=== PATIENT | female | born 1995 | race Caucasian/White ===

== ENCOUNTER 2017-01-27 20:42 | Emergency (ER) | payer MEDICAID, OTHER ==
[~2017-01-27] VITALS: Ht 160 cm; Wt 72.7 kg
[2017-01-27 20:46] VITALS: BP 145/88; TEMP 99.3
[2017-01-27] MEDS ORDERED: ADDERALL XR20 MG PO (20:49)
[2017-01-27] MEDS ORDERED: ELIMITE TOP (21:07)
[2017-01-27 22:01] LABS: PH 5 (5-8); URINE APPEARANCE Hazy; URINE BACTERIA Rare /hpf; URINE BILIRUBIN Negative (NEGATIVE); URINE BLOOD 1+ (NEGATIVE); URINE COLOR Yellow; URINE GLUCOSE Negative (NEGATIVE); URINE KETONE 2+ (NEGATIVE); URINE RBC 0-2 /hpf; URINE UROBILINOGEN Negative (NEGATIVE); URINE WBC 0-2 /hpf
[2017-01-27 22:04] LABS: BASO # 0.1 (0.0-0.2); BASO % 0.6 % (0.0-2.0); EOS # 0.1 (0.0-0.7); EOS % 1.7 % (0-4.0); GRAN # 5.3 (1.4-6.5); GRAN % 63.8 % (42.2-75.2); HEMOGLOBIN 13.4 g/dl (12.0-15.0); LYMPH # 2.1 (1.2-3.4); LYMPH % 25.1 % (20.0-51.0); MEAN CELL VOLUME 78 fl (80.0-95.0); MEAN CORPUSCULAR HEMOGLOBIN 26 pg (26.0-32.0); MEAN CORPUSCULAR HGB CONC 34 g/dl (33.0-37.0); MEAN PLATELET VOLUME 10.1 fl (7.4-10.4); MONO # 0.7 (0.1-0.6); MONO % 8.6 % (1.7-9.3); PLATELET COUNT 285 K/mm3 (130-400); RED BLOOD COUNT 5.16 M/mm3 (4.10-5.30); REDCELL DISTRIBUTION WIDTH-CV 14.9 % (11.5-14.5); WHITE BLOOD COUNT 8.3 K/mm3 (4.8-10.8)
[2017-01-27 22:18] LABS: ALANINE AMINOTRANSFERASE 27 U/L (9-52); ALBUMIN 5.4 gm/dL (3.5-5.0); ALKALINE PHOSPHATASE 69 U/L (50-136); ANION GAP 17 mmol/L (7-16); BLOOD UREA NITROGEN 18 mg/dL (7-17); C-REACTIVE PROTEIN < 0.5 mg/dL (0.0-0.9); CALCIUM 10.1 mg/dL (8.4-10.2); CARBON DIOXIDE 18 mmol/L (22-30); CHLORIDE 105 mmol/L (98-107); GLUCOSE 82 mg/dL (74-106); POTASSIUM 3.5 mmol/L (3.4-5.0); SODIUM 141 mmol/L (137-145)
[2017-01-27 22:23] LABS: ERYTHROCYTE SEDIMENTATION RATE 12 mm/hr (0-20)
[2017-01-27 23:32] VITALS: PULSE 91
== END 2017-01-27 23:33 | disposition home or self-care (01) ==
LOC: COL.ER 20:42
PROVIDERS: Emergency Medicine
DX: E86.0 Dehydration (principal)
CPT/HCPCS: J7030

== ENCOUNTER → 2017-05-05 | Outpatient (CLI) | payer OTHER ==
[~2017-05-05] MED LIST: ADDERALL XR20 MG PO; ELIMITE TOP
== END ==
LOC: COL.RAD 04-30 11:00
DX: S32.010A Wedge compression fracture of first lumbar vertebra, initial encounter for closed fracture (principal); S32.020A Wedge compression fracture of second lumbar vertebra, initial encounter for closed fracture

== ENCOUNTER 2019-03-27 06:52 | Inpatient (IN) | payer BC, MEDICAID ==
[2019-03-27] VITALS (51 sets, daily range): BP systolic 90–174; BP diastolic 53–104; PULSE 57–98; TEMP 97.4–99.3
[~2019-03-27] VITALS: Ht 160 cm; Wt 92.7 kg
--- NOTE | 2019-03-27 07:20 | NUR ---
Patient ambulatory to LR6 with sister, changed into gown, and FHR/TOCO monitors placed and explained per Jules CHIN.
--- NOTE | 2019-03-27 08:05 | NUR ---
Plan of care discussed. IV started in left hand and blood obtained and to lab, LR infusing. 0805: Dr. Rico at bedside and assessing patient/FHR strip. SVE per Physician / and AROM at this time with clear fluid noted.
--- NOTE | 2019-03-27 08:07 | NUR ---
Pitocin started at 2Mu per Dr. Rodrigues orders. 1010: Patient back from bathroom and sits on birthing ball, difficulty tracing FHR and monitor adjusted. 1030: at nurses station and viewing FHR strip. 1115: Dr. Rico at bedside assessing patient and FHR strip. SVE per physician 1-2/80/-2. 1135: Patient more uncomfortable with contractions and sitting in rocking chair. FHR difficult to trace and monitor adjusted. 1150: Patient reqesting epidural and Debo Spencer ENERGY ADMINISTRATOR called and notified. 1210: Patient sitting on edge of bed for placement of epidural and Eric ENERGY ADMINISTRATOR at bedside for procedure. Difficulty tracing FHR due to maternal position at this time. 1216: Single shot given and patient tolerates well. 1223: Patient repositioned and wedged left. 1227: FHR baseline 125bpm and tracing subtle late decelerations. 1235: Villanueva catheter placed and patient tolerates well. SVE-1-2/90/-2.
[2019-03-27] MEDS ORDERED: PRENATAL MVI (08:20)
[2019-03-27 09:21] LABS: BASO % 0.4 % (0.0-2.0); EOS # 0.6 (0.0-0.7); EOS % 5.6 % (0-4.0); GRAN # 6.8 (1.4-6.5); GRAN % 66.1 % (42.2-75.2); HEMOGLOBIN 13.2 g/dl (12.5-16.0); LYMPH % 19.7 % (20.0-51.0); MEAN CELL VOLUME 82 fl (80.0-100.0); MEAN CORPUSCULAR HEMOGLOBIN 27 pg (27.0-31.0); MEAN CORPUSCULAR HGB CONC 33 g/dl (33.0-37.0); MONO # 0.8 (0.1-0.6); MONO % 7.5 % (1.7-9.3); PLATELET COUNT 268 K/mm3 (130-400); RED BLOOD COUNT 4.89 M/mm3 (4.10-5.30); REDCELL DISTRIBUTION WIDTH-CV 14.8 % (11.5-14.5)
[2019-03-27] MEDS ORDERED: MOTRIN 800800 MG/TAB PO (11:56)
[2019-03-27] MEDS ORDERED: PERCOCET 325 MG1 TA2 PO (11:56)
--- NOTE | 2019-03-27 12:40 | NUR ---
FHR tracing late deceleration and patient turned right. 1250: FHR tracing recurrent late declerations. 1305: FHR baseline 125-130bmm and decreasing to 100-120bpm for approx 3 minutes. Patient wedged left. Recurrent late decerlations noted. Patient wedged right. 1320: FHR decreasing to 90bpm for 60 seconds and returns to basline. 1340: Dr. Rico called and updated. 1400: Subtle late decelerations tracing. Patient repositioned. 1430: FHR continues to trace subtle late decelerations. SVE-/-2. Patient repositioned. FHR returning to baseline. 1455: Subtle recurrrent late decelerations noted. 1515: Dr. Rico called and notified and states she is on her way to assess. 1535: Dr. Rico at bedside and assessing patient and FHR strip. SVE per physician /-2 and scalp stimuation/ bloody show noted. Orders to keep pitocin at 22mU. 1540: FHR decreasing to 90bpm for 50 seconds and gradually increases. 1542: FHR decreases to 90-100bpm for approx 2 minutes, patient sits up and then wedged left.
--- NOTE | 2019-03-27 16:43 | NUR ---
FHR 90-100bpm, patient sat up and wedged left and FHR increasing to 130-150bpm. FHR continues to trace recurrent late decelerations. 1610: FHR baseline 135-140bpm and recurrent late decelerations decreasing to 90-115bpm after each contractions with return to baseline. Patient being repositioned/wedged right and Dr. Rico aware of situtation. 1622: Patient wedged left. 1630: SVE-5-6/90-2 with bloody show and FHR tracing recurrent late decelerations.
--- NOTE | 2019-03-27 16:45 | NUR ---
FHR continues to trace recurrent late decelerations and patient begins repositioned. 1656: FHR baseline 135-140bpm and decreases to 90-100bpm for approx. 8 minutes. During this time patient sat up. 1700: Pitocin turned off, patient wedged right. 1703: Oxygen on via mask at 10ml/hr and patient wedged left. LR bolus started. 1705: SVE 6-7/90/-1 and FHR increasing to 155bpm. Recurrent late decelerations noted. 170: Dr. Rico called and notified and states she has beein keeping an eye on the FHR strip.
--- NOTE | 2019-03-27 18:20 | NUR ---
Report received from GIUSEPPE Parra. SVE 8-/-1. Plan of care explained to pt and questions answered. 1832: updated on pts status. See physican notification. Pitocin turned up to 12mus/hr per s orders. 1899: Pt repositioned to LL and peanut ball placed. FHR deceleration noted after repositioning. FHR down to 95-100bpm lasting 190 seconds with spontaneous return to baseline. 1907: at bedside reviewing FHR strip. 1909: SVE Complete per . Instructions on pushing with contractions given to pt who verbalizes understanding. Pt begins pushing with . RN remains at bedside. 1916: FHR deceleration noted down to 90bpms at lowest point with spontaneous returns to baseline lasting remaining of pushing. at bedside reviewing FHR strip. Scalp stimulation performed per provider. LR bolus infusing and oxygen administered via oxymask at 10Ls. Instructions on continuing to push with contractions given. 1930: Spontaneous delivery of infants head, loose NC X1 reduced by following spontaneous vaginal delivery of viable male by . to mothers chest where dried and stimulated by nursery RN. Pitocin stopped per protocol. Cord clamped X2 and cut by mother's sister. Care of infant assumed by GIUSEPPE Reardon. 1932: Spontaneous delivery of intact placenta by . Pitocin resummed at 333mus/her per protocol. Second degree laceration repaired by . Fundal message completed by this RN with clots noted, fundus firm, no free flow noted. Pericare provided, pads changed and ice pack applied. Pt repositioned in bed and plan of care and safety precautions explained to pt who verblaizes understanding. Call light within reach.
[2019-03-27 19:02] LABS: TRICYCLIC ANTIDEPRESS URINE NEGATIVE
[2019-03-28 00:15] VITALS: BP 129/71; PULSE 83; TEMP 99
[2019-03-28 04:30] VITALS: BP 108/85; PULSE 82; TEMP 98.6
[2019-03-28 08:05] VITALS: BP 125/74; PULSE 74; TEMP 97.8
--- NOTE | 2019-03-28 09:42 | NUR ---
Initial visit attempt; Consult in Progress, Cartographic Engineer left card of congratulations for the of their daughter and information regarding the availability of spiritual care at [facility].
--- NOTE | 2019-03-28 14:21 | NUR ---
CHISEL GRINDER josé miguel and COBY responded to a social media coordinator referral for the patient. The patient reports she lives with her father and siblings and has support. The patient states she has the supplies that she needs such as car seat, diapers and wipes. The patient reports she does not see a therapist for counseling; COBY addressed depression and anxiety. The patient states things are better since she is back home and has God back in her life. The patient states the kayla father is not involved. The patient states she was denied for [facility] services. COBY encouraged patient to contact [facility] again. Danny from financial counseling reports he has met with the patient to discuss the baby's insurance needs. The above information was collaborated with the patient's nurse.
[2019-03-28 16:15] VITALS: BP 127/61; PULSE 72; TEMP 98.6
[2019-03-28 21:30] VITALS: BP 129/82; PULSE 97; TEMP 98.1
[2019-03-29 07:00] VITALS: BP 118/75; PULSE 80; TEMP 98.6
--- NOTE | 2019-03-29 12:00 | NUR ---
1200-REVIEWED FOLLOW UP AT AT 6 WEEKS WITH PATIENT. ENCOUARGED PATIENT TO TAKE NEWLY PRESCRIBED PAIN MEDICATIONS NEEDED AND INSTRUCTED FOR DISCOMFORTS. REVIEWED VAGINAL DISCHARE INSTRUCTIONS. PATIENT DENIES QUESTIONS. 1205-AMBULATORY OFF UNIT WITH AND OWN FATHER TO PRIVATE CAR.
--- NOTE | 2019-04-03 08:44 | NUR ---
Patient's infant's cord blood was negative for illegal drugs in system.
== END 2019-03-29 12:05 | disposition home or self-care (01) | DRG 807 ==
LOC: OB 06:52 → LDR 06:52 → OB 22:54
PROVIDERS: ADMIT Obstetrics & Gynecology
PROC: 10E0XZZ Delivery of Products of Conception, External Approach (ICD-10-PCS; principal; 2019-03-27)
PROC: 10907ZC Drainage of Amniotic Fluid, Therapeutic from Products of Conception, Via Natural or Artificial Opening (ICD-10-PCS; 2019-03-27)
PROC: 3E033VJ Introduction of Other Hormone into Peripheral Vein, Percutaneous Approach (ICD-10-PCS; 2019-03-27)
DX: O99.344 Other mental disorders complicating childbirth (principal); Z37.0 Single live birth; O77.0 Labor and delivery complicated by meconium in amniotic fluid; F32.9 Major depressive disorder, single episode, unspecified; F41.9 Anxiety disorder, unspecified; O70.1 Second degree perineal laceration during delivery; O69.1XX0 Labor and delivery complicated by cord around neck, with compression, not applicable or unspecified; Z3A.40 40 weeks gestation of pregnancy
CPT/HCPCS: J2590; J2795; J7120